=== PATIENT | female | born 1985 | race Caucasian/White ===

== ENCOUNTER 2017-04-06 07:00 | Inpatient (IN) | payer OTHER ==
[~2017-04-06 07:00] MED LIST: BUTORPHANOL TARTRATE 1 MG/ML VIAL IVPUSH ONE; ELECTROLYTE-148 SOLN 1,000 ML IV SCH; ELECTROLYTE-148 SOLN 500 ML IV ONE; PROMETHAZINE HCL 25 MG/1 ML VIAL IVPB ONE
[2017-04-06] MEDS ORDERED: AMPICILLIN - 2 GM in SODIUM CHLORIDE 100 ML IVPB ONE (07:15)
[2017-04-06] MEDS ORDERED: BUTORPHANOL TARTRATE 1 MG/ML VIAL ONE ×2 (07:27)
[2017-04-06] MEDS ORDERED: PROMETHAZINE HCL 25 MG/1 ML VIAL ONE (07:28)
[2017-04-06] MEDS ORDERED: ELECTROLYTE-148 SOLN 1,000 ML IV SCH (07:30)
[2017-04-06 07:34] LABS: BASO % 0.4 % (0-2.0); EOS % 1.2 % (0-4.5); HEMATOCRIT 33.3 % (32.4-45.2); HEMOGLOBIN 11.1 GM/dL (10.7-15.3); LYMPH % 18.4 % (8-40); MCH 28.8 pg (25.7-33.7); MCHC 33.4 g/dl (32.0-36.0); MEAN CELL VOLUME 86.2 fl (80-96); MEAN PLT VOLUME 7.6 fl (7.5-11.1); MONO % 5.8 % (3.8-10.2); NEUT % 74.2 % (42.8-82.8); PLATELET COUNT 310 K/MM3 (134-434); RBC 3.86 M/mm3 (3.60-5.2); RDW 13.1 % (11.6-15.6); WHITE BLOOD COUNT 17.2 K/mm3 (4.0-10.0)
[2017-04-06 07:57] LABS: INR 0.96 (0.82-1.09); PROTHROMBIN TIME (PATIENT) 10.8 SEC (9.98-11.88)
[2017-04-06 08:00] LABS: ACTIVATED PTT 26.5 SECONDS (26.9-34.4)
[2017-04-06 08:10] LABS: ANION GAP 7 (8-16); BLOOD UREA NITROGEN 9 mg/dL (7-18); CALCIUM 7.9 mg/dL (8.5-10.1); CHLORIDE 107 mmol/L (98-107); CO2 25 mmol/L (21-32); CREATININE 0.6 mg/dL (0.55-1.02); GLUCOSE,RANDOM 104 mg/dL (74-106); POTASSIUM 3.6 mmol/L (3.5-5.1); SODIUM 139 mmol/L (136-145)
--- NOTE | 2017-04-06 08:33 | HP ---
Past Medical History - Primary Care Physician PCP:: Kevin Weinberg - Admission Chief Complaint: 31 yo P2 @ 38.4 wks presented c/o contructions, no VB, no LOF, no VB, +FM History of Present Illness: 1. GBS positive for PCN 2.Rh negative - s/p RhoGam 01/21/2017 3. Maternal Obesity - h/o Gastric sleeve 2013 4. h/o Gestational HTN - current normotensive History Source: Patient Limitations to Obtaining History: No Limitations - Past Medical History Reproductive: Yes: Polycystic Ovary Syndrome ...: 3 ...Para: 2 ...Term: 2 (2009 - [id number], 2012- 8lb7oz) ...: 0 ...Spon : 0 ...Induced : 0 ...Multiple Gestation: 0 ...LMP: 07/10/16 ... Weeks Gestation by Dates: 38.4 ...EDC by Dates: 04/16/17 ...EDC by Sono: 04/16/17 Heme/Onc: Yes: Other (Gestational HTN) - Past Surgical History Past Surgical History: Yes: Bariatric Surgery (01/2014 Gastric sleeve) Hx Myomectomy: No Hx Transabdominal Cerclage: No - Smoking History Smoking history: Never smoked Have you smoked in the past 12 months: No Aproximately how many cigarettes per day: 0 - Alcohol/Substance Use Hx Alcohol Use: No History of Substance Use: reports: None Home Medications - Allergies Allergies/Adverse Reactions: Allergies Allergy/AdvReac Type Severity Reaction Status Date / Time No Known Allergies Allergy Verified 03/19/15 12:00 - Home Medications Home Medications: Ambulatory Orders Azithromycin [Zithromax Z-SSUANA (5 DAYS)] 250 mg PO ASDIR #6 tablet 03/19/15 Norgestimate-Ethinyl Estradiol [Ortho Tri-Cyclen Lo] 1 each PO DAILY 03/19/15 Family Disease History - Family Disease History Family Disease History: Diabetes: Father (neuropathy, cardiac bypass) Review of Systems - Review of Systems Constitutional: reports: No Symptoms HENT: reports: No Symptoms Neck: reports: No Symptoms Cardiovascular: reports: No Symptoms Respiratory: reports: No Symptoms Gastrointestinal: reports: No Symptoms Genitourinary: reports: No Symptoms Breasts: reports: No Symptoms Reported Musculoskeletal: reports: No Symptoms Integumentary: reports: No Symptoms Neurological: reports: No Symptoms Endocrine: reports: No Symptoms Hematology/Lymphatic: reports: No Symptoms Psychiatric: reports: No Symptoms Physical Exam - Maternity Vital Signs: Vital Signs Temperature 97.9 F 04/06/17 08:00 Pulse Rate 71 04/06/17 08:00 Respiratory Rate 20 04/06/17 08:00 Blood Pressure 126/69 04/06/17 08:00 O2 Sat by Pulse Oximetry (%) Constitutional: Yes: Well Nourished Eyes: Yes: WNL HENT: Yes: WNL Neck: Yes: WNL Cardiovascular: Yes: WNL Lungs: Clear to auscultation Breast(s): Yes: WNL - Abdominal Exam/OB Fundal Height: 39 Number of Fetuses: Single Presentation: Vertex Contractions: Yes Regularity: Regular (Q 2-3min) Intensity: Moderate Monitor Mode: External Heart Rate (range): 150's + accels, occasional mild varriables Heart Rate Location: Midline Category: II (good veriability, overall very reasuring) Accelerations: Uniform Decelerations: Variable (mild) - Vaginal Exam/OB Vaginal Bleediing: No Dilatation (cm): rim Effacement (%): 100 Amniotic Membrane Status: Intact Presentation: Vertex/Position Station: -1 - Physical Exam Musculoskeletal: Yes: WNL Extremities: Yes: WNL Edema: No Deep Tendon Reflex Grade: Normal +2 ...Motor Strength: WNL Psychiatric: Yes: WNL - Labs Lab Results: CBC, BMP 04/06/17 07:00 04/06/17 07:00 Assessment/Plan 31yo P2 @ 38.4 wks in active labor Admited to L&D MF Status reassuring Admited to L&D Stadol given for pain management Ampicillin given for GBS prophylaxis Consider ROM and anticipate VD when feels pressure
[2017-04-06] MEDS ORDERED: OXYTOCIN 20 UNITS in 0.9% NS 20 UNIT/1,000 ML INFUS.BAG IV ONE (08:45)
[2017-04-06] MEDS ORDERED: LIDOCAINE HCL 1% PRESERVATIVE FREE - 30ML VIAL ONE (08:45)
[2017-04-06] MEDS ORDERED: TUBERCULIN PPD 5 TU/0.1ML SYRINGE (IN PATIENT USE ONLY) ID ONE (09:00)
[2017-04-06] MEDS ORDERED: AMPICILLIN - 1 GM in SODIUM CHLORIDE 100 ML IVPB SCH (11:00)
[2017-04-06] MEDS: IBUPROFEN 600 MG TABLET (FP) PO PRN ×2 (11:15→17:37)
[2017-04-06] MEDS: ACETAMINOPHEN 325 MG TABLET (FP) PO PRN ×2 (11:15→17:37)
[2017-04-06] MEDS ORDERED: ACETAMINOPHEN 325 MG TABLET (FP) ONE (11:16)
[2017-04-06] MEDS ORDERED: IBUPROFEN 600 MG TABLET (FP) PO ONE (11:16)
[2017-04-06] MEDS ORDERED: BENZOCAINE 20% 57 GM BOTTLE TP PRN (13:54)
[2017-04-06] MEDS ORDERED: BENZOCAINE 28 GM HEMORRHOIDAL OINTMENT TP PRN (13:54)
[2017-04-06] MEDS ORDERED: METHYLERGONOVINE MALEATE 0.2 MG/1 ML AMP IM PRN (13:54)
[2017-04-06] MEDS ORDERED: WITCH HAZEL 50% (TUCKS) 40 PAD/JAR PAD TP PRN (13:54)
[2017-04-06] MEDS ORDERED: BISACODYL 10 MG SUPP.RECT RC PRN (13:54)
[2017-04-06] MEDS ORDERED: OXYTOCIN 20 UNITS in 0.9% NS 20 UNIT/1,000 ML INFUS.BAG IV SCH (14:00)
[2017-04-07] MEDS: ACETAMINOPHEN 325 MG TABLET (FP) PO PRN ×3 (06:35→20:54)
[2017-04-07] MEDS: IBUPROFEN 600 MG TABLET (FP) PO PRN ×3 (06:37→20:55)
--- NOTE | 2017-04-07 08:15 | PN ---
Delivery - Delivery Vaginal Delivery: No Problems, Spontaneous Type of Anesthesia: None Episiotomy/Laceration: None EBL (cc): 300 Delivery, Single - Stages of Labor Date 1st Stage Initiatied: 04/06/17 Time 1st Stage Initiated: 05:20 Date 2nd Stage Initiated: 04/06/17 Time 2nd Stage Initiated: 08:52 Date of Delivery: 04/06/17 Time of Delivery: 08:59 Date Placenta Delivered: 04/06/17 Time Placenta Delivered: 09:00 Placenta: Yes: Spontaneous, Normal Configuration - Condition of Shoe Dyer/Curriculum Consultant Present: No Gender: Male Weight: 2.807 kg Position: OA Total Hours ROM (Hrs/Mins): 8 - 1 Minute Total Score: 9 5 Minutes Total Score: 9 - Feeding Plan Initial Plan: Exclusive throughout hospitalization Benefits of Exclusively reinforced: Yes Remarks - Remarks Remarks: Normal spont delivery, no complications.
--- NOTE | 2017-04-07 08:20 | PN ---
Post Progress Note - Subjective Subjective: No complaints Post Day: 1 Type of Delivery: Vital Signs: Vital Signs Temperature 98 F 04/07/17 06:00 Pulse Rate 60 04/07/17 06:00 Respiratory Rate 18 04/07/17 06:00 Blood Pressure 112/63 04/07/17 06:00 O2 Sat by Pulse Oximetry (%) Breast Exam: Yes: Soft Uterus: Yes: Fundus Firm, Fundus below umbilicus, Non-tender Abdomen/GI: Yes: Abdomen soft, Passing flatus, Tolerating PO Lochia: Yes: Rubra Lochia, amount: Small Extremities: Yes: Calves non-tender Perineum: Yes: Intact Activity: Ambulating - Labs Labs: CBC WBC 17.2 K/mm3 (4.0-10.0) H 04/06/17 07:00 RBC 3.86 M/mm3 (3.60-5.2) D 04/06/17 07:00 Hgb 11.1 GM/dL (10.7-15.3) D 04/06/17 07:00 Hct 33.3 % (32.4-45.2) D 04/06/17 07:00 MCV 86.2 fl (80-96) 04/06/17 07:00 MCH 28.8 pg (25.7-33.7) 04/06/17 07:00 MCHC 33.4 g/dl (32.0-36.0) 04/06/17 07:00 RDW 13.1 % (11.6-15.6) D 04/06/17 07:00 Plt Count 310 K/MM3 (134-434) D 04/06/17 07:00 MPV 7.6 fl (7.5-11.1) 04/06/17 07:00 Neutrophils % 74.2 % (42.8-82.8) 04/06/17 07:00 Lymphocytes % 18.4 % (8-40) D 04/06/17 07:00 Monocytes % 5.8 % (3.8-10.2) 04/06/17 07:00 Eosinophils % 1.2 % (0-4.5) 04/06/17 07:00 Basophils % 0.4 % (0-2.0) 04/06/17 07:00 Assessment/Plan 31yo P3 s/p , doing well stable, afebrile. care instructions reviewed. Continue routine care. Ambulation encouraged Discharge instruction reviewed.
[2017-04-07 08:40] LABS: BASO % 0.5 % (0-2.0); EOS % 0.8 % (0-4.5); HEMATOCRIT 28.1 % (32.4-45.2); HEMOGLOBIN 9.2 GM/dL (10.7-15.3); LYMPH % 23.5 % (8-40); MCH 28.7 pg (25.7-33.7); MCHC 32.8 g/dl (32.0-36.0); MEAN CELL VOLUME 87.4 fl (80-96); MEAN PLT VOLUME 7.8 fl (7.5-11.1); MONO % 4.7 % (3.8-10.2); NEUT % 70.5 % (42.8-82.8); PLATELET COUNT 217 K/MM3 (134-434); RBC 3.22 M/mm3 (3.60-5.2); RDW 13.2 % (11.6-15.6); WHITE BLOOD COUNT 15.3 K/mm3 (4.0-10.0)
[2017-04-07] MEDS: PRENATAL VITAMINS W/ FOLIC ACID TABLET (FP) PO SCH (09:03)
[2017-04-07] MEDS ORDERED: SENNOSIDES/DOCUSATE COMBO (SENNA PLUS) TABLET (UD) PO PRN (22:00)
[2017-04-08] MEDS: ACETAMINOPHEN 325 MG TABLET (FP) PO PRN (06:00)
[2017-04-08] MEDS: IBUPROFEN 600 MG TABLET (FP) PO PRN (06:03)
[2017-04-08 08:17] VITALS: BP 126/66; PULSE 55; TEMP 97.8
[2017-04-08] MEDS: PRENATAL VITAMINS W/ FOLIC ACID TABLET (FP) PO SCH (09:36)
== END 2017-04-08 12:45 | disposition home or self-care (01) | DRG 560 ==
LOC: JLDR 07:00 → J3W 11:38
PROVIDERS: ADMIT Obstetrics & Gynecology; ATTEND Obstetrics & Gynecology
PROC: 10E0XZZ Delivery of Products of Conception, External Approach (ICD-10-PCS; principal; 2017-04-07)
DX: O99.824 Streptococcus B carrier state complicating childbirth (principal); O99.843 Bariatric surgery status complicating pregnancy, third trimester; O99.213 Obesity complicating pregnancy, third trimester; E66.9 Obesity, unspecified; Z68.35 Body mass index [BMI] 35.0-35.9, adult; O34.83 Maternal care for other abnormalities of pelvic organs, third trimester; E28.2 Polycystic ovarian syndrome; Z37.0 Single live birth; Z3A.38 38 weeks gestation of pregnancy
CPT/HCPCS: 36415; 59409; 80048; 85025; 85610; 85730; 86593; 86850; 86900; 86901

== ENCOUNTER 2019-05-28 16:10 | Emergency (ER) | payer OTHER ==
--- NOTE | 2019-05-28 16:17 | PDOC ---
History of Present Illness - General Chief Complaint: Cold Symptoms Stated Complaint: FLU X1 WEEK Time Seen by Provider: 05/28/19 16:17 - History of Present Illness Initial Comments: HPI: 33yo F with PMH of PCOS and gastric sleeve presenting with fevers, chills, congestion, and cough x 6 days. Sick contacts include her three children and fiance who all have similar symptoms. One child has tested positive for influenza A and B. Patient has taken dayquil/nyquil and motrin with some relief of symptoms. Has been tolerating po. Presenting today upon encouragement from her mother who is concerned that her daughter has not yet been evaluated by a physician for this illness and "things just don't seem right." Patient's congestion makes her feel she cannot breathe well at times. 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 Fever of 102 yesterday. Did not get a flu shot this season. PCP: Dr. Castanon ROS: Constitutional: +fever, +chills HEENT: +throat pain, +congestion Cardiovascular: no chest pain, no palpitations Respiratory: +cough, no shortness of breath Gastrointestinal: no abdominal pain, no nausea Genitourinary: no dysuria, no hematuria Musculoskeletal: +myalgia, no arthralgia Skin: no rash, no itching Neurologic: no headache, no weakness Psych: no agitation, no anxiety PE: General: Awake, alert, and fully oriented, in no acute distress Head: No signs of trauma Eyes: EOMI, sclera anicteric ENT: Uvula midline, tonsils with mild erythema but do not appear edematous; no exudates or oral lesions Neck: Normal ROM, supple Lungs: Lungs clear, Normal breath sounds Cardio: Regular rhythm, S1 and S2 present Abdomen: Soft, nontender Extremities: Normal range of motion, Distal pulses present SKIN: Warm, Dry, normal turgor Neurologic: Cranial nerves II through XII grossly intact. Normal speech ED Course/MDM: DDX including but not limited to viral syndrome, strep pharngitis, pneumonia CENTOR criteria score of 0; will defer strep testing As patient has been symptomatic for >48 hours, tamiflu would not provide clinical improvement Albuterol nebulizer Decadron for achiness and throat pain 05/28/19 16:54 Patient feeling better Robittussin AC (instructed that she is only to use this if she has someone to look after her children due to the sedating adverse effects) Inhaler sent to pharmacy Return precautions Stable for discharge 05/28/19 17:23 Past History - Past Medical History Allergies/Adverse Reactions: Allergies Allergy/AdvReac Type Severity Reaction Status Date / Time No Known Allergies Allergy Verified 05/28/19 16:11 Home Medications: Ambulatory Orders Norgestimate-Ethinyl Estradiol [Ortho Tri-Cyclen Lo] 1 each PO DAILY 03/19/15 Albuterol Sulfate Inhaler - [Ventolin HFA Inhaler -] 1 - 2 inh PO Q4H #1 inhaler 05/28/19 Guaifenesin AC [Robitussin AC -] 5 ml PO HS PRN #15 ml MDD 5 mL 05/28/19 Asthma: No Cancer: No Cardiac Disorders: No Diabetes: No HTN: No Seizures: No Thyroid Disease: No - Surgical History Abdominal Surgery: Yes (GASTRIC SLEEVE) - Psycho Social/Smoking Cessation Hx Smoking Status: No Smoking History: Never smoked Have you smoked in the past 12 months: No Number of Cigarettes Smoked Daily: 0 Hx Alcohol Use: No Drug/Substance Use Hx: No Substance Use Type: None Hx Substance Use Treatment: No Discharge - Discharge Information Problems reviewed: Yes Clinical Impression/Diagnosis: Influenza-like illness Condition: Improved Disposition: HOME - Additional Discharge Information Prescriptions: Albuterol Sulfate Inhaler - [Ventolin HFA Inhaler -] 1 - 2 inh PO Q4H #1 inhaler Guaifenesin AC [Robitussin AC -] 5 ml PO HS PRN #15 ml MDD 5 mL PRN Reason: Cough - Follow up/Referral - Patient Discharge Instructions Patient Printed Discharge Instructions: DI for Influenza -- Adult Additional Instructions: You came into the emergency department with fever, chills, muscle aches, congestion, and cough. Your history and physical exam was consistent with a viral syndrome. Prescriptions sent to your pharmacy. Take as instructed. Rest, drink lots of fluids: Teas, water, soups, Pedialyte Saltwater gargles, Steamy showers can help break up mucus Lots of handwashing and good hygiene Continue [id number] medications for symptomatic relief Tylenol or Motrin for comfort Follow-up with a primary care provider this week to discuss this ED visit and to further evaluate your symptoms. Your workup is not complete until you do so. Call and make an appointment. Immediate medical attention is required if you have: any chest pain, palpitations, shortness of breath, severe headaches, changes in vision, episodes of fainting, focal numbness or weakness, any severe abdominal pain, any black tarry stool, or any new or concerning symptoms. If you think you are having an emergency, call for emergency medical services or present to the emergency department right away. - Post Discharge Activity
[2019-05-28 16:40] VITALS: BP 121/86; PULSE 80; TEMP 98.2; BMI 32.9
--- NOTE | 2019-05-28 16:40 | PDOC ---
Attending Attestation - Resident Resident Name: Luciana Shafer - ED Attending Attestation I have performed the following: I have examined & evaluated the patient, The case was reviewed & discussed with the resident, I agree w/resident's findings & plan, Exceptions are as noted - HPI HPI: 33 yo F presents with 6 day history of congestion, cough, difficulty breathing ( particularly at night), burning throat pain. She also c/o burning in her chest associated with her cough. Denies EPPS. +Sick contacts- one of her children has both flu A and B, one has flu A. - Physicial Exam PE: GENERAL: Awake, alert, and fully oriented, in no acute distress HEAD: No signs of trauma EYES: PERRLA, EOMI, sclera anicteric, conjunctiva clear ENT: Auricles normal inspection, hearing grossly normal, nares with clear rhinorrhea, +boggy turbinates, oropharynx erythematous without exudates. Moist mucosa NECK: Normal ROM, supple, no lymphadenopathy, JVD, or masses LUNGS: Dec air entry B/L, but able to speak full sentences. No wheezes, and no crackles HEART: Regular rate and rhythm, normal S1 and S2, no murmurs, rubs or gallops ABDOMEN: Soft, nontender, normoactive bowel sounds. No guarding, no rebound. No masses EXTREMITIES: Normal range of motion, no edema. No clubbing or cyanosis. No cords, erythema, or tenderness NEUROLOGICAL: Cranial nerves II through XII grossly intact. Normal speech, normal gait. Motor and sensation intact SKIN: Warm, dry, normal turgor, no rashes or lesions noted. - Medical Decision Making Likely flu based on multiple sick contacts with confirmed flu. Will treat symptomatically, she is out of the window for tamiflu. Decadron for throat inflammation, albuterol neb for cough/SOB. Will give her robitussin AC to use at night if needed (counseled her that she would need someone to be able to take care of children, as it will cause drowsiness). DC home.
[2019-05-28] MEDS ORDERED: ALBUTEROL SO4 0.083% IH SOL 2.5 MG/3 ML VIAL.NEB. NEB ONE (16:48)
[2019-05-28] MEDS ORDERED: DEXAMETHASONE SOD PHOSPHATE 10 MG/1 ML VIAL IVPUSH ONE (16:49)
[2019-05-28] MEDS ORDERED: DEXAMETHASONE SOD PHOSPHATE 10 MG/1 ML VIAL ONE ×2 (16:52→16:54)
[2019-05-28] MEDS ORDERED: ALBUTEROL SO4 2.5/IPRATROPIUM 0.5 INH SOL 3 ML VIAL.NEB. NEB ONE (16:52)
== END 2019-05-28 17:35 | disposition home or self-care (01) ==
LOC: FER 16:10
PROC: 3E0F7GC Introduction of Other Therapeutic Substance into Respiratory Tract, Via Natural or Artificial Opening (ICD-10-PCS; principal; 2019-05-28)
PROC: 3E033GC Introduction of Other Therapeutic Substance into Peripheral Vein, Percutaneous Approach (ICD-10-PCS; 2019-05-28)
DX: J11.1 Influenza due to unidentified influenza virus with other respiratory manifestations (principal); Z98.84 Bariatric surgery status
CPT/HCPCS: 99284-25; J1100